=== PATIENT | female | born 1985 | race Caucasian/White ===

== ENCOUNTER 2019-02-27 01:44 | Emergency (ER) | payer BC ==
[~2019-02-27] VITALS: Ht 167.6 cm; Wt 77.6 kg
[2019-02-27 01:51] VITALS: Ht 167.6 cm; Wt 77.6 kg
[2019-02-27 03:39] VITALS: BP 106/62
== END 2019-02-27 03:39 | disposition home or self-care (01) ==
LOC: ED 01:44
DX: J02.9 Acute pharyngitis, unspecified (principal); R11.0 Nausea; Z88.2 Allergy status to sulfonamides; Z88.1 Allergy status to other antibiotic agents
CPT/HCPCS: J2001; J8540; Q0162